=== PATIENT | female | born 1940 | race Caucasian/White ===

== ENCOUNTER 2024-09-17 14:39 | Emergency (ER) | payer OTHER, SELFPAY ==
[2024-09-17 14:41] VITALS: BMI 24.0
[2024-09-17 15:13] VITALS: BP 132/75; PULSE 72; RESP 16; TEMP 36.4; O2SAT 95
--- NOTE | 2024-09-17 15:19 | EKG_ITS ---
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
--- NOTE | 2024-09-17 15:19 | XR_ITS ---
Examination: AP chest single view TECHNIQUE: AP upright portable chest single view Exam date and time: September 17, 2024 1537 hours INDICATIONS: Syncopal episode today. FINDINGS: Normal heart size Breast implants obscuring detail of the lung valentine No pneumonia or pulmonary edema The osseous structures are demineralized IMPRESSION: No pneumonia or pulmonary edema
--- NOTE | 2024-09-17 15:20 | EDNOTE_ITS ---
ED Dizzyness RME/HPI General Chief Complaint: Dizziness Stated Complaint: I FEEL LIKE I'M GOING TO PASS OUT Time Seen by Provider: 09/17/24 15:08 Arrival date/time: 09/17/24 14:39 RME / HPI RME / HPI Narrative: 84-year-old female patient with significant history of hypertension, came in for evaluation regarding sudden onset of dizziness. Patient was outside, talking to her neighbor, and suddenly developed near syncope. According to the patient she developed sudden onset of dizziness, but did not totally lost her consciousness. Patient denies any headache denies any neck pain denies any chest pain but complain of abdominal discomfort. No vomiting no diarrhea no fever. Currently the only complaint is mild dizziness. Patient is ambulatory. Related Data Previous Rx's ?Medication ?Instructions ?Recorded cephalexin 500 mg capsule 500 mg PO TID 7 days #21 cap s 09/17/24 Allergies Allergy/AdvReac Type Severity Reaction Status Date / Time No Known Allergies Allergy Verified 09/17/24 14:40 Review of Systems Review of Systems Narrative Review of Systems: Review of system reviewed and within normal limits except mentioned in HPI ED Exam Narrative Physical exam: VITAL SIGNS: Reviewed. GENERAL APPEARANCE: Alert and interactive, follows commands, no acute distress, HEAD AND FACE: Non-traumatic. ENT: PERRL, pink conjunctivitis, eyelid no trauma, Mucous membrane moist. NECK: Supple, nontender, no nuchal rigidity. CHEST: No tenderness, no crepitus, no paradoxical movement, no retractions. LUNGS: Clear, well ventilated, symmetric, no rales, no wheezing, no ronchi, no stridor, good breath sounds bilaterally. HEART: Regular rate, regular rhythm, no murmur, no gallops. ABDOMEN: Soft, positive bowel sounds, nondistended, no guarding, nontender, no rebound, no masses, RECTAL: Deferred. GENITAL: Deferred. NEUROLOGICAL: Gross motor function intact sensory function intact, Appropriate for age. MUSCULOSKELETAL: low back nontender, full range of motion. EXTREMITIES: Nontender, full range of motion. SKIN: Color pink, dry, no rash, no lacerations, no abrasions, no contusions. LYMPHATICS: Deferred. Course Quality Measures none Orders Category Date Time Status Bedside COVID-19 Antigen Test NOW Care 09/17/24 15:19 Active Bedside Influenza A&B Antigen Test NOW Care 09/17/24 15:19 Active EKG (ED ONLY) *Do not use* NOW Care 09/17/24 15:19 Completed EKG (ED Only) Stat Exams 09/17/24 15:19 Draft XR chest 1V Stat Exams 09/17/24 15:19 Completed B-Type Natriuretic Peptide Stat Lab 09/17/24 15:30 Completed CBC Stat Lab 09/17/24 15:30 Completed Comprehensive Metabolic Panel Stat Lab 09/17/24 15:30 Completed Partial Thromboplastin Time Stat Lab 09/17/24 15:30 Completed Prothrombin Time with INR Stat Lab 09/17/24 15:30 Completed Troponin I Stat Lab 09/17/24 15:30 Completed Urinalysis, C/S if Indicated Stat Lab 09/17/24 16:13 Completed Urine Culture Stat Lab 09/17/24 16:13 Received Potassium Chloride [K-Dur] Med 09/17/24 18:31 Discontinued 40 meq PO X1 ONE cephALEXin [Keflex] Med 09/17/24 18:31 Discontinued 500 mg PO X1 ONE Vital Signs Vital signs: Vital Signs Temperature 97.6 F 09/17/24 15:13 Pulse Rate 72 09/17/24 15:13 Respiratory Rate 16 09/17/24 15:13 Blood Pressure 132/75 H 09/17/24 15:13 Pulse Oximetry (%) 95 09/17/24 15:13 Oxygen Delivery Method Room Air 09/17/24 15:13 Dizziness MDM Narrative MDM Narrative:: 84-year-old female patient with significant history of hypertension, came in for evaluation regarding sudden onset of dizziness. Patient was outside, talking to her neighbor, and suddenly developed near syncope. According to the patient she developed sudden onset of dizziness, but did not totally lost her consciousness. Patient denies any headache denies any neck pain denies any c hest pain but complain of abdominal discomfort. No vomiting no diarrhea no fever. Currently the only complaint is mild dizziness. Patient is ambulatory. Laboratory workup significant for UTI and potassium of 3.1. Patient received potassium replacement and Keflex in the ED. Patient is ambulatory with no assistance no recurrence of dizziness noted. Patient appears nontoxic and hemodynamically stable. Patient discharged home and instructed to follow-up with primary care provider in 24 to 48 hours. Instructed to return to the emergency department immediately if worsening of symptoms Patient data External records reviewed:: None Clinical information provided by:: patient Social determinants that could affect healthcare access:: none Patient has the following chronic illnesses:: Hypertension How is presenting disease/condition affected by chronic disease/condition?: exacerbated by Evaluation data The following diagnostics were reviewed and interpreted by me:: lab results and radiology exam(s) Lab and/or radiology exams considered but not ordered:: None Interpretation Summary: See results in MDM Medications / Prescriptions Medications or Prescriptions considered but not ordered:: None Medication administrations:: Medication Administration History Discontinued Medications Cephalexin HCl (Cephalexin 250 Mg Capsule) 500 mg PO X1 ONE Stop: 09/17/24 18:32 Potassium Chloride (Potassium Chloride 20 Meq Tabcr) 40 meq PO X1 ONE Stop: 09/17/24 18:32 Keflex and potassium placement Consultations Consultation(s) initiated? (list below): No Diagnosis Dizziness Differential Diagnosis: orthostatic hypotension and other (UTI, dehydration) Most likely diagnosis given after review of the tests above:: UTI, dehydration Admission Indicated Admission indicated?: not indicated Admission Request Was there a request for admission?: No Disposition Plan Disposition Plan: Discharge Discharge Attestation Discharge Attestation: The patient and all family members were given an opportunity to ask questions and understood the discharge instructions. Discharge instructions specifically effects, indications for sooner follow up or return to the emergency department, and the expected course of current diagnosis. Patient condition: Stable Discharge Plan Plan Patient Disposition: HOME (Self Care) Disposition Comment: Stable Prescriptions/Referrals Prescriptions/Med Rec: New cephalexin 500 mg capsule 500 mg PO TID 7 Days Qty: 21 0RF Referrals: No Primary/Family,Physician [Primary Care Provider] - In 1 week Problem List Clinical Impression: Dizziness, UTI (urinary tract infection) Patient/Caregiver Discharge Instructions Discharge Activity: activity as tolerated Education Materials: Understanding Urinary Tract ... Additional Instructions: Thank you for the opportunity for serving you today. You are stable for discharged . You are advised to: Follow-up with your PCP in 1 to 2 days Return to ED for worsening of symptoms Increase oral fluids Print Language: Romanian Stand Alone Forms: Evelia Award Info., Patient Portal Info Letter PA/JARRETT Supervising Physician PHYLLIS/JARRETT Supervising Physician: MD Emeli
[2024-09-17 15:52] LABS: Basophils # (Auto) 0.1 Thou/mm3 (0.0-0.2); Basophils % (Auto) 1 % (0-2.5); Eosinophils # (Auto) 0.2 Thou/mm3 (0.0-0.5); Eosinophils % (Auto) 3 % (0-10); Hematocrit 35.7 % (36.0-46.0); Hemoglobin 12.1 g/dL (12.0-16.0); Immature Granulocytes % (Auto) 0 % (0-0); Immature Granulocytes Auto 0.01 Thou/mm3 (0.00-0.00); Lymphocytes # (Auto) 2.3 Thou/mm3 (1.0-4.8); Lymphocytes % (Auto) 29 % (10-50); Mean Corpuscular HGB Conc 33.9 g/dl (31.0-37.0); Mean Corpuscular Hemoglobin 30.9 pg (25.0-35.0); Mean Corpuscular Volume 91 fL (80-100); Monocytes # (Auto) 0.5 Thou/mm3 (0.0-0.8); Monocytes % (Auto) 6 % (0-12); Neutrophils # (Auto) 4.8 Thou/mm3 (1.8-7.7); Neutrophils % (Auto) 61 % (37-80); Nucleated Red Blood Cell % 0 /100 WBC (0); Platelet Count 320 Thou/mm3 (140-440); RDW Standard Deviation 40.7 fL (36.4-46.3); Red Blood Count 3.91 Miln/mm3 (4.00-5.20); White Blood Count 7.9 Thou/mm3 (3.6-11.0)
[2024-09-17 16:09] LABS: Partial Thromboplastin Time 22.3 Seconds (22.0-36.0); Prothrombin Time 10.9 Seconds (9.0-12.2)
[2024-09-17 16:10] LABS: B-Type Natriuretic Peptide 28 pg/mL (0-100)
[2024-09-17 16:11] LABS: Alanine Aminotransferase 12 U/L (10-49); Albumin, Serum 4.6 gm/dL (3.4-4.8); Alkaline Phosphatase 78 U/L (46-116); Anion Gap 7 (7-16); Aspartate Amino Transferase 21 U/L (0-34); BUN/Creatinine Ratio 12 Ratio (12-20); Bilirubin,Total 0.4 mg/dL (0.3-1.2); Blood Urea Nitrogen 11 mg/dL (9-23); Calcium 9.7 mg/dL (8.3-10.6); Calcium (Corrected) 9.7 mg/dL (8.5-10.1); Carbon Dioxide 31.4 mMol/L (20.0-31.0); Chloride 105 mMol/L (98-107); Creatinine (Component) 0.9 mg/dL (0.6-1.3); Estimated Creatinine Clearance 40.9 mL/min (>60); Globulin 2.3 gm/dL (2.3-3.5); Glucose 127 mg/dL (74-106); Osmolality,Calculated 286 (275-295); Potassium 3.1 mMol/L (3.4-5.1); Sodium 143 mMol/L (136-145); Total Protein 6.9 gm/dL (5.7-8.2); Troponin I < 0.020 ng/mL (0.0-0.045); eGFR > 60 See Note
[2024-09-17 17:08] LABS: Collection Type, Urine Clean Catch
[2024-09-17 17:31] LABS: Bilirubin,Urine Negative (Negative); Blood,Urine Negative (Negative); Calcium Oxalate Crystals,Urine 4+; Clarity,Urine Turbid (Clear/Hazy); Color,Urine Drk-Yellow (Lt Yel-Yel); Glucose, Urine Negative (Negative); Hyaline Casts,Urine 8 /hpf (0-1); Ketones,Urine Trace (Negative); Leukocyte Esterase,Urine Positive (Negative); Nitrite,Urine Negative (Negative); PH,Urine 5.5 (5.0-7.0); Protein,Urine 1+ (Neg - Trace); RBC,Urine 5 /hpf (0-3); Squamous Epithelial Cell,Urine 1 /hpf (0-5); WBC,Urine 11 /hpf (0-5)
[2024-09-17 17:34] LABS: Culture Indicated,Urine Yes
[2024-09-17] MEDS: POTASSIUM CHLORIDE 20 mEq TABCR 40 MEQ PO (18:57)
[2024-09-17] MEDS: cephALEXin 250 MG CAPSULE 500 MG PO (18:58)
== END 2024-09-17 19:30 | disposition home or self-care (01) ==
PROVIDERS: Nurse Practitioner Family; Emergency Provider Emergency Medicine
DX: N39.0 Urinary tract infection, site not specified (principal); I10 Essential (primary) hypertension
CPT/HCPCS: 36415; 71045; 80053; 81001; 83880; 84484; 85025; 85610; 85730; 87077; 87086; 87186; 93005; 99283; A9270